=== PATIENT | female | born 1965 | race Caucasian/White ===

== ENCOUNTER 2017-02-12 06:50 | Emergency (ER) | payer OTHER ==
[2017-02-12 07:11] VITALS: PULSE 72
--- NOTE | 2017-02-12 08:56 | C.PDOC ---
History Of Present Illness 51 y/o female c/o uri like symptoms over the last few days- sore throat, nasal congestion, myalgias, no fever or chills. pt having difficult time breathing through her nose, and feels it is difficult to breath sometimes. pt used a one pump of a friend's symbicort yesterday and has been using otc oxymetazoline nasal spray for last 3 days, last time was last night before bed. pt sts she woke up feeling like she was choking and then felt like she was having an anxiety attack and unable to get back to sleep. pt has had similar symptoms in past under similar conditions. pt no longer feels anxious at this time in the ED. pt has no cp nor sob at this time. pt has not followed up with psychiatric services for her anxiety issues or panic attacks. Time Seen by Provider: 02/12/17 07:12 Chief Complaint (Nursing): Cough, Cold, Congestion History Per: Patient, Family History/Exam Limitations: no limitations Onset/Duration Of Symptoms: Days (2) Current Symptoms Are (Timing): Better Associated Symptoms: Sinus Drainage, Myalgias, Nasal Congestion Ear Symptoms: Bilateral: None Recent travel outside of the [place]: No Past Medical History Reviewed: Historical Data, Nursing Documentation, Vital Signs Vital Signs: Last Vital Signs Temp 98.2 F 02/12/17 09:13 Pulse 72 02/12/17 09:13 Resp 20 02/12/17 09:13 BP 136/82 02/12/17 09:13 Pulse Ox 99 02/12/17 09:25 - Medical History PMH: Anxiety Denies: Diabetes, Hepatitis, HIV, HTN, Seizures, Sexually Transmitted Disease Surgical History: No Surg Hx Family History: States: Unknown Family Hx - Social History Hx Tobacco Use: No Hx Alcohol Use: No Hx Substance Use: No - Immunization History Hx Tetanus Toxoid Vaccination: Yes Hx Influenza Vaccination: Yes Hx Pneumococcal Vaccination: No Review Of Systems Constitutional: Negative for: Fever, Chills ENT: Positive for: Nose Discharge, Nose Congestion, Throat Pain. Negative for: Ear Pain, Nose Pain, Mouth Pain, Throat Swelling Cardiovascular: Negative for: Chest Pain, Palpitations, Light Headedness Respiratory: Positive for: Cough. Negative for: Shortness of Breath Gastrointestinal: Negative for: Nausea, Vomiting, Abdominal Pain, Diarrhea Skin: Negative for: Rash Neurological: Negative for: Weakness, Numbness Physical Exam - Physical Exam Appears: Non-toxic, Other (appears uncomfortable) Skin: Normal Color, Warm, Dry Head: Atraumatic, Normacephalic Eye(s): bilateral: Normal Inspection, PERRL, EOMI Ear(s): Bilateral: Normal (tm normal, some wax in canals) Nose: Other (nasal congestion, swollen appearing turbinates) Oral Mucosa: Moist Tongue: Normal Appearing Lips: Normal Appearing Throat: Erythema (mild), No Exudate Neck: Normal ROM, Supple Lymphatic: No Adenopathy Chest: Symmetrical, No Deformity, No Tenderness Cardiovascular: Rhythm Regular, No Murmur Respiratory: Normal Breath Sounds, No Accessory Muscle Use, No Rales, No Rhonchi Gastrointestinal/Abdominal: Soft, No Tenderness Extremity: Normal ROM, No Pedal Edema, No Calf Tenderness Neurological/Psych: Oriented x3, Normal Speech, Normal Cognition, Normal Motor, Normal Sensation ED Course And Treatment ECG: Interpreted By Me, Viewed By Me Interpretation Of ECG: nsr with sinus arrthymia, minimal voltage criteria for lvh O2 Sat by Pulse Oximetry: 99 Pulse Ox Interpretation: Normal Medical Decision Making Medical Decision Makin51 y/o female with uri symptoms, taking oxymetolazine nasal spray and someone else's symbicort c/o difficulty sleeping, feeling anxious after waking with a choking sensation. pt reports anxious feeling has resolved, she has had this before in similar circumstances and has never followed up. pt advised to stop taking the nasal spray and symbicort, f/u in med clinic and with [facility]. Disposition Counseled Patient/Family Regarding: Studies Performed, Diagnosis, Need For Followup, Rx Given - Disposition Referrals: Non [facility] Provider, [Primary Care Provider] - [facility] [Outside] [facility] [Outside] Disposition: HOME/ ROUTINE Disposition Time: 08:56 Condition: GOOD Additional Instructions: Please stop taking nasal spray you have and symbicort. Use flonase and claritin as directed. Please follow up in medical clinic and with [facility] call ([phone] ) (psychiatric services) for anxiety. Return to ER for any worsening symptoms. Prescriptions: Fluticasone Propionate [Flonase] 2 spr CASI DAILY #1 bottle Loratadine [Claritin] 10 mg PO DAILY #21 tab Instructions: Upper Respiratory Infection (ED), Anxiety (ED) Forms: Gen Discharge Inst Romansh - Clinical Impression Clinical Impression: Anxiety, URI (upper respiratory infection)
[2017-02-12 09:14] VITALS: BP 136/82; RESP 20; TEMP 98.2
[2017-02-12 09:20] VITALS: O2SAT 99
--- NOTE | 2017-02-14 14:27 | CARD ---
APPROVED REPORT EKG Measurement Heart [id number] <Conclusion> Normal sinus rhythm with sinus arrhythmia Minimal voltage criteria for LVH, may be normal variant Borderline ECG
== END 2017-02-12 09:14 | disposition home or self-care (01) ==
LOC: SUPCPDRO 06:50 → C.ER 06:50
DX: J06.9 Acute upper respiratory infection, unspecified (principal); F41.9 Anxiety disorder, unspecified

== ENCOUNTER 2017-02-17 18:48 | Emergency (ER) | payer SELFPAY ==
[2017-02-17 18:52] VITALS: TEMP 98.3; O2SAT 98
[2017-02-17] MEDS ORDERED: Naproxen 550 mg Tab PO STA (19:22)
[2017-02-17] MEDS ORDERED: Naproxen 550 mg Tab PO ONE (19:29)
--- NOTE | 2017-02-17 19:37 | C.PDOC ---
History Of Present Illness Patient is a 51 year old female who presents to the ER with a complaint of a worsening right ear pain that started on Tuesday, associated with a sore throat. Patient denies recent swimming, discharge, difficulty swallowing, fever or SOB. Time Seen by Provider: 02/17/17 19:12 Chief Complaint (Nursing): ENT Problem History Per: Patient History/Exam Limitations: None Onset/Duration Of Symptoms: Hrs Current Symptoms Are (Timing): Still Present Quality (Ear): Other (Pain) Quality (Mouth/Throat): Other (Sore). denies: Swelling Symptoms Have Been: Continuous Anticoagulant/Antiplatlet Use?: Unknown Recent Aspirin Use: Unknown Past Medical History Reviewed: Historical Data, Nursing Documentation, Vital Signs Vital Signs: Last Vital Signs Temp 98.3 F 02/17/17 18:49 Pulse 75 02/17/17 19:47 Resp 18 02/17/17 19:47 BP 145/78 02/17/17 19:47 Pulse Ox 98 02/17/17 21:36 - Medical History PMH: Anxiety Surgical History: No Surg Hx Family History: States: Unknown Family Hx - Social History Hx Tobacco Use: No Hx Alcohol Use: No Hx Substance Use: No - Immunization History Hx Tetanus Toxoid Vaccination: Yes Hx Influenza Vaccination: Yes Hx Pneumococcal Vaccination: No Review Of Systems Constitutional: Negative for: Fever ENT: Positive for: Ear Pain (Right). Negative for: Ear Discharge Respiratory: Negative for: Shortness of Breath Gastrointestinal: Negative for: Other (Difficulty swallowing) Physical Exam - Physical Exam Appears: Well, Non-toxic Skin: Normal Color, Warm, Dry Head: Atraumatic, Normacephalic Eye(s): bilateral: Normal Inspection, EOMI Ear(s): Left: Normal, Right: Other (edema in canal w/ exudates, TM not visualized. Tragus tenderness, no mastoid tenderness.) Nose: Normal Oral Mucosa: Moist Lips: Normal Appearing, No Erythema Throat: No Erythema, No Exudate, Other (Tonsillar swelling) Neck: Normal, Normal ROM, Supple Lymphatic: Normal Exam, No Adenopathy Chest: Symmetrical, No Tenderness Cardiovascular: Rhythm Regular, No Murmur Respiratory: Normal Breath Sounds, No Accessory Muscle Use, Other (Speaking in complete sentences) Neurological/Psych: Oriented x3, Normal Speech, Other (No focal deficits) ED Course And Treatment O2 Sat by Pulse Oximetry: 98 (Room air) Pulse Ox Interpretation: Normal Progress Note: Anaprox administered. On reassessment, patient is resting comfortably and is in no acute distress. Patient was instructed to follow up with ENT in 1-2 days for further evaluation. Disposition - Disposition Referrals: [facility] [Outside] Luis Fernando Castro MD [Staff Provider] - Disposition: HOME/ ROUTINE Disposition Time: 19:34 Condition: STABLE Additional Instructions: Follow up with primary medical doctor in 1-3 days without fail for further evaluation. Take medications as prescribed. Return to the emergency department at any time if symptoms persist or worsen. Prescriptions: Amoxicillin 875 mg PO BID #14 tablet Naproxen [Naprosyn] 1 tab PO BID PRN #20 tab PRN Reason: Pain Neomycin/Polymyxin/Hydrocortis [Cortisporin Otic Susp] 3 drop TOP TID #1 bottle Instructions: Otitis Externa (ED) - Clinical Impression Clinical Impression: Otitis externa, Tonsillitis - Scribe Statement The provider has reviewed the documentation as recorded by the Scribbrenda Aguillon All medical record entries made by the Cristoferibbrenda were at my direction and personally dictated by me. I have reviewed the chart and agree that the record accurately reflects my personal performance of the history, physical exam, medical decision making, and the department course for this patient. I have also personally directed, reviewed, and agree with the discharge instructions and disposition.
[2017-02-17 19:50] VITALS: BP 145/78; PULSE 75; RESP 18
== END 2017-02-17 19:49 | disposition home or self-care (01) ==
LOC: SUPCPDRO 18:48 → C.ER 18:48
DX: H60.91 Unspecified otitis externa, right ear (principal)

== ENCOUNTER 2017-09-06 01:09 | Emergency (ER) | payer SELFPAY ==
--- NOTE | 2017-09-06 01:52 | C.PDOC ---
History Of Present Illness Pt c/o rectal pain x 4 days worse on defecation. Pt denies constipation, rectal bleed or abdominal pain Time Seen by Provider: 09/06/17 01:20 Chief Complaint (Nursing): GI Problem History Per: Patient History/Exam Limitations: no limitations Severity: Moderate Past Medical History Vital Signs: Last Vital Signs Temp 97.9 F 09/06/17 01:12 Pulse 72 09/06/17 01:12 Resp 20 09/06/17 01:12 BP 158/99 H 09/06/17 01:12 Pulse Ox 99 09/06/17 02:51 - Medical History PMH: Anxiety Denies: Diabetes, Hepatitis, HIV, HTN, Seizures, Sexually Transmitted Disease Family History: States: Unknown Family Hx - Social History Hx Tobacco Use: No Hx Alcohol Use: No Hx Substance Use: No - Immunization History Hx Tetanus Toxoid Vaccination: No Hx Influenza Vaccination: No Hx Pneumococcal Vaccination: Yes Review Of Systems Constitutional: Negative for: Fever Gastrointestinal: Positive for: Rectal Pain. Negative for: Abdominal Pain, Constipation, Melena, Hematochezia Physical Exam - Physical Exam Appears: Well, Non-toxic Eye(s): bilateral: Normal Inspection, EOMI Gastrointestinal/Abdominal: Normal Exam, Soft, No Tenderness Rectal: Maroon Stool, No Melena, No Blood Streaked Stool, Hemorrhoids (external) Neurological/Psych: Oriented x3 Gait: Steady ED Course And Treatment O2 Sat by Pulse Oximetry: 99 Pulse Ox Interpretation: Normal Progress Note: Toradol IM was orderedd. Pt advised high fiber diet, stool softeners and PMD follwo up Disposition Counseled Patient/Family Regarding: Diagnosis, Need For Followup, Rx Given - Disposition Disposition: HOME/ ROUTINE Disposition Time: 01:50 Condition: STABLE Additional Instructions: Please follow up with PMD or in clinic sitz baths High fiber diet Take meds as directed Return to ER if worse Prescriptions: Docusate Sodium [Colace] 100 mg PO TID #30 capsule Hard Fat/Phenylephrine [place] [Anusol Suppository] 1 sup RC BID #20 sup Instructions: Hemorrhoids (ED) Forms: [employer] (Yoruba) - Clinical Impression Clinical Impression: Hemorrhoids
[2017-09-06 02:59] VITALS: BP 138/80; PULSE 67; RESP 16; TEMP 98; O2SAT 95
== END 2017-09-06 03:01 | disposition home or self-care (01) ==
LOC: C.ER 01:09
DX: K64.4 Residual hemorrhoidal skin tags (principal)
CPT/HCPCS: 96372; 99284; J1885

== ENCOUNTER 2018-10-11 18:29 | Emergency (ER) | payer OTHER ==
[2018-10-11 18:38] VITALS: O2SAT 95
[2018-10-11 19:52] VITALS: BP 141/90; PULSE 88; RESP 15; TEMP 98.4
--- NOTE | 2018-10-11 20:03 | C.PDOC ---
History Of Present Illness 52 year old female with no allergies and no medical problems presents to the emergency department with complaints of high blood pressure. Patient states that her last obtained blood pressure was 160/100, prompting ED visit. Patient states that this is not the first time that she has had high blood pressure. Over the past year, patient reports symptoms of chest pain, back pain, neck pain, body aches, myalgias, and feeling "tired all the time". Patient states that she has not followed up with a PMD due to not having health insurance. Time Seen by Provider: 10/11/18 19:12 Chief Complaint (Nursing): High Blood Pressure History Per: Patient History/Exam Limitations: no limitations Onset/Duration Of Symptoms: Days (1) Current Symptoms Are (Timing): Still Present Past Medical History Reviewed: Historical Data, Nursing Documentation, Vital Signs Vital Signs: Last Vital Signs Temp 98.4 F 10/11/18 19:51 Pulse 88 10/11/18 19:51 Resp 15 10/11/18 19:51 BP 141/90 10/11/18 19:51 Pulse Ox 95 10/11/18 19:51 - Medical History PMH: Anxiety Denies: Diabetes, Hepatitis, HIV, HTN, Seizures, Sexually Transmitted Disease Surgical History: No Surg Hx Family History: States: No Known Family Hx - Social History Hx Tobacco Use: No Hx Alcohol Use: No Hx Substance Use: No - Immunization History Hx Tetanus Toxoid Vaccination: No Hx Influenza Vaccination: No Hx Pneumococcal Vaccination: Yes Review Of Systems Constitutional: Positive for: Weakness, Other (weight gain). Negative for: Fever, Chills Cardiovascular: Positive for: Chest Pain Musculoskeletal: Positive for: Neck Pain, Back Pain, Leg Pain, Other (generalized myalgias) Neurological: Positive for: Headache Physical Exam - Physical Exam Appears: Non-toxic, No Acute Distress Skin: Normal Color, Warm, Dry Head: Atraumatic, Normacephalic Eye(s): bilateral: Normal Inspection, PERRL, EOMI Ear(s): Bilateral: Normal Nose: Normal Oral Mucosa: Moist Throat: Normal, No Erythema, No Exudate Neck: Normal, Supple Chest: Symmetrical, No Tenderness Cardiovascular: Rhythm Regular, No Murmur Respiratory: Normal Breath Sounds, No Rales, No Rhonchi, No Wheezing Gastrointestinal/Abdominal: Soft, No Tenderness, No Guarding, No Rebound Extremity: Normal ROM Neurological/Psych: Oriented x3, Normal Speech, Normal Cognition ED Course And Treatment O2 Sat by Pulse Oximetry: 95 (RA) Pulse Ox Interpretation: Normal Medical Decision Making Medical Decision Making: The repeat Bp is 141/90. BP is mildly elevated. The patient was instructed to follow up with the medical clinic for BP check. Patient is also requesting a medications for sleep. Disposition - Disposition Referrals: [facility] [Outside] Disposition: HOME/ ROUTINE Disposition Time: 20:12 Condition: STABLE Additional Instructions: Follow up with the medical doctor/clinic within 1-2 days. Return if worsened. Prescriptions: hydrOXYzine HCl [Atarax] 25 mg PO HS #20 tab Instructions: High Blood Pressure (DC) Forms: [employer] (Lithuanian) - Clinical Impression Clinical Impression: Hypertension, Sleep trouble - PA / DRINK BOX MECH[employer]IC / Resident Statement MD/DO has reviewed & agrees with the documentation as recorded. - Scribe Statement The provider has reviewed the documentation as recorded by the Scribe (Saulo Juan) All medical record entries made by the Scribe were at my direction and personally dictated by me. I have reviewed the chart and agree that the record accurately reflects my personal performance of the history, physical exam, medical decision making, and the department course for this patient. I have also personally directed, reviewed, and agree with the discharge instructions and disposition.
== END 2018-10-11 20:32 | disposition home or self-care (01) ==
LOC: C.ER 18:29
DX: I10 Essential (primary) hypertension (principal); G47.9 Sleep disorder, unspecified